=== PATIENT | male | born 1985 | race Caucasian/White ===

== ENCOUNTER → 2016-05-19 | Outpatient (REF) | payer OTHER | LOC: M LABDRAW1 17:02 | PROVIDERS: ATTEND Internal Medicine Rheumatology | DX: Z79.899 Other long term (current) drug therapy (principal) ==

== ENCOUNTER 2016-06-16 16:42 | Inpatient (IN) | payer OTHER ==
[~2016-06-16] VITALS: Ht 172.7 cm; Wt 64.2 kg
[2016-06-16] MEDS ORDERED: BUPR300T34 PO (16:56)
[2016-06-16] MEDS ORDERED: MELO15TA4 PO (16:56)
[2016-06-16] MEDS ORDERED: HUMI40KI2 (16:56)
[2016-06-16] MEDS ORDERED: ESCI10TA2 PO (16:56)
[2016-06-16 18:40] LABS: MEAN CORPUSCULAR HEMOGLOBIN 30.7 pg (27.0-33.0); MEAN CORPUSCULAR HGB CONC 34.8 g/dl (32.0-36.5); MEAN CORPUSCULAR VOLUME 88.1 fl (80.0-96.0); RED CELL DISTRIBUTION WIDTH 11.6 % (11.5-14.5)
[2016-06-16 19:05] LABS: ALBUMIN 4.6 GM/DL (3.2-5.2); ALBUMIN/GLOBULIN RATIO 1.53 (1.00-1.93); ALKALINE PHOSPHATASE 58 U/L (45-117); ALT/SGPT 21 U/L (12-78); ANION GAP 9 MEQ/L (8-16); AST/SGOT 13 U/L (15-37); BILIRUBIN,DIRECT 0.1 MG/DL (0.0-0.2); BILIRUBIN,TOTAL 0.5 MG/DL (0.2-1.0); BLOOD UREA NITROGEN 8 MG/DL (7-18); CALCIUM LEVEL 9.3 MG/DL (8.5-10.1); CARBON DIOXIDE LEVEL 27 MEQ/L (21-32); CHLORIDE LEVEL 104 MEQ/L (98-107); CREATININE FOR GFR 1.09 MG/DL (0.70-1.30); GLOMERULAR FILTRATION RATE > 60.0 (>60); GLUCOSE, FASTING 101 MG/DL (70-105); METHADONE URINE NEGATIVE (NEGATIVE); POTASSIUM SERUM 3.5 MEQ/L (3.5-5.1); SODIUM LEVEL 140 MEQ/L (136-145); TOTAL PROTEIN 7.6 GM/DL (6.4-8.2)
[2016-06-16 21:06] VITALS: BP 144/98
[2016-06-16] MEDS ORDERED: MAALOX 30 ML SUSP *UDC PO PRN (22:00)
[2016-06-16] MEDS ORDERED: ACETAMINOPHEN TAB 650MG DOSE (2X325MG) PO PRN (22:00)
[2016-06-16] MEDS ORDERED: traZODone 50 MG TAB PO PRN (22:00)
[2016-06-16] MEDS ORDERED: MOM 30ML SUSPENSION UDC PO PRN (22:00)
[2016-06-17 05:56] VITALS: BP 126/71
[2016-06-17] MEDS: ESCITALOPRAM OXALATE 10 MG TAB (LEXAPRO) PO SCH (09:24)
[2016-06-17] MEDS: buPROPion **XL** TABLET 150MG (WELLBUTRIN XL) PO SCH (09:24)
[2016-06-17] MEDS: MELOXICAM (MOBIC) 7.5 MG TAB PO SCH (09:24)
--- NOTE | 2016-06-17 09:42 | HPEPDOC ---
Medical History and Physical Date of Admission Jun 16, 2016 at 20:45 History and Physical PCP: Damaris Epps NP ATTENDING: Dr. Lj Salmon HPI: 31yoM admitted to [facility] for unspecified depressive disorder, being medically examined today. 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 He states he has chronic symptoms which include chronic back pain, chronic hip pain, chronic knee pain, chronic foot pain, nausea, intermittent diarrhea and constipation. He has been prescribed prednisone in the past which she took approximately 10 months however this was discontinued. He does take Mobic for his symptoms. He was recently prescribed Humira which was recently approved by his insurance and is scheduled to begin 06/21/16. He usually has follow-up with rheumatology every 2 months. He is unclear when his next appointment is. Denies any fevers, chills, [place], CP, SOB, cough, palpitations, changes in bowel or bladder habits. PMHx: Ankylosing spondylitis Depression Anxiety Chronic pain PSHX: Breast biopsy related to infected piercing Vasectomy LASIK SOCHX: Resides in: [facility] Marital Status: Kids: 3 Employment: [employer] work Tobacco use: 3-5 cigars per day ETOH: Denies Illicit Drugs: Marijuana daily IV Drug Use: Denies Tattoos done unprofessionally: 1 FAMHX: Mother: Alive, well Father: Alive, depression, anxiety Siblings: 2 brothers Alive, alcoholism Children: Alive, one daughter with history of depression, anxiety and history of CVA Unexpected deaths due to medical reasons: None. ROS: As noted in HPI, otherwise 11pt ROS of systems reviewed and remarkable for poor appetite. PE: GEN: 31yoM, appears stated age. Well-nourished, well developed. No acute distress. Alert and oriented x 3. Teary during exam, avoids eye contact. HEENT: Normocephalic, atraumatic. Pupils are equal, round, and reactive to light. Extraocular movements are intact. No nystagmus appreciated. Sclera are nonicteric. Conjunctiva without injection. Nose midline. Nasal turbinates without bogginess. EACs both patent BL. TMs both visualized and moore with good cone of light, no bulging or erythema. No facial asymmetry. Moist mucous membranes. Dentition fair. Pharynx pink and moist, no cobblestoning. Neck supple , trachea midline. No lymphadenopathy or thyromegaly appreciated. CHEST: Regular rate and rhythm, +S1, +S2 LUNGS: Clear to auscultation bilaterally. No wheezes, rales, or rhonchi. Breathing appears symmetric and easy. Patient is speaking in full sentences. No accessory muscle use. ABD: Round, soft, non-tender, non-distended. +Bowel sounds throughout. No rebound or guarding. No costovertebral angle tenderness. EXT: Pulses 2+ bilaterally dorsalis pedis and radial. No lower extremity edema appreciated. SKIN: [place], dry, warm. Capillary refill <2sec. No rashes. NEURO: Alert and oriented x 3. Cranial nerves III-XII are intact. No focal deficits appreciated. EKG: Pending. A&P: 31yoM admitted to [facility] for unspecified depressive disorder 1. Psych. Plan per Psychiatry. Obtain baseline EKG to assure the safety of psychiatric medications as they can prolong the QT interval. 2. Nicotine dependence. Patch available. 3. Ankylosing spondylitis. Management with rheumatology. Continue Mobic 15 mg daily. Patient is instructed to begin Humira 06/21/16 as per rheumatology. Keep outpatient follow-up with rheumatology. 4. Follow up with PCP on discharge. 5. Substance use. Per psychiatry. 6. Chronic back pain/joint pain. Patient does not feel he needs to see pain management at this time. Continue outpatient follow-up with rheumatology. Continue Mobic 15mg daily. 7. Staff member Moises present throughout exam. Vital Signs Vital Signs Date Time Temp Pulse Resp B/P Pulse Ox O2 Delivery O2 Flow Rate FiO2 06/17/16 05:56 98.6 69 16 126/71 Room Air 06/16/16 20:16 97 Laboratory Data Labs 24H Laboratory Tests 2 06/16/16 18:07: Acetaminophen Level < 2.0L, Aspartate Amino Transf (AST/SGOT) 13L, Alanine Aminotransferase (ALT/SGPT) 21, Alkaline Phosphatase 58, Total Bilirubin 0.5, Direct Bilirubin 0.1, Albumin 4.6, Albumin/Globulin Ratio 1.53, Anion Gap 9, Calcium Level 9.3, Ethyl Alcohol Level < 0.003, Glomerular Filtration Rate > 60.0, Salicylates Level < 1.7L, Thyroid Stimulating Hormone (TSH) 0.383, Total Protein 7.6, Urine Amphetamines Screen NEGATIVE, Urine Benzodiazepines Screen NEGATIVE, Urine Opiates Screen NEGATIVE, Urine Barbiturates Screen NEGATIVE, Urine Cannabinoids Screen POSITIVEH, Urine Cocaine Metabolite Screen NEGATIVE, Urine Methadone Screen NEGATIVE, Urine Phencyclidine Screen NEGATIVE CBC/BMP Laboratory Tests 06/16/16 18:07 Red Blood Count 4.95, Mean Corpuscular Volume 88.1, Mean Corpuscular Hemoglobin 30.7, Mean Corpuscular Hemoglobin Concent 34.8, Red Cell Distribution Width 11.6 Home Medications Scheduled Bupropion HCl (Bupropion HCl Xl) 300 Mg Tab 300 MG PO DAILY DEPRESSION TAKES AT LUNCHTIME Escitalopram Oxalate (Escitalopram Oxalate) 10 Mg Tab 10 MG PO DAILY DEPRESSION TAKES AT LUNCHTIME Meloxicam (Meloxicam) 15 Mg Tab 15 MG PO DAILY PAIN TAKES AT LUNCHTIME Allergies Coded Allergies: No Known Drug Allergy (Unverified Allergy, Unknown, 06/07/12) Tri Wilson Jun 17, 2016 09:42
--- NOTE | 2016-06-17 12:54 | HPEPDOC ---
[facility] History & Physical History and Physical DATE OF ADMISSION: Jun 16, 2016 at 20:45 LEGAL STATUS AT ADMISSION: Voluntary CHIEF COMPLAINT: HISTORY OF THE PRESENT ILLNESS: PSYCHIATRIC REVIEW OF SYSTEMS: Affective: . Anxiety: . Trauma: . Psychosis: . Personally: . PAST PSYCHIATRIC HISTORY: Prior Psychiatric Disorder: . Outpatient Treatment: . Suicidal/Self injurious: . Psychotropic Medication History: . ALLERGIES: Please see below. FAMILY PSYCHIATRIC HISTORY: . SOCIAL HISTORY: Early Relations/development: . Sibling order: . Paternal relationships: . Education: . Occupational: . Legal: . Martial: . Economic: . Supports: . Abuse/trauma: . SUBSTANCE ABUSE HISTORY: . PAST MEDICAL/SURGICAL HISTORY: 1. . 2. . VITAL SIGNS: Temperature , pulse , respiratory rate , blood pressure , pulse oximetry % on room air. MENTAL STATUS EXAMINATION: General appearance: Patient is a -year old male, who is . Speech: . Thought processes: . Thought content: . Abstract reasoning and computation: . Description of associations: . Description of abnormal or psychotic thoughts: . Judgment: . Insight: . Orientation: . Recent and remote memory: . Attention span and concentration: . Fund of knowledge: . Mood: "." Affect: . DIAGNOSES: 1. . 2. . 3. . ASSESSMENT: PROBLEM LIST: 1. . 2. . 3. . INITIAL TREATMENT PLAN: 1. Patient was admitted on a . 2. Complete history was obtained. 3. With patients permission, family will be contacted and database will be expanded. 4. Patients medication regimen will be reviewed and changed accordingly. 5. Patient will be provided with protected environment. 6. Patient will be treated with individual, group, and milieu therapies. 7. Patient will receive supportive psych-education. 8. Discharge planning will commence immediately. 9. Outpatient follow-up treatment will be strongly recommended. 10. The initial treatment plan will focus initially on: * Depression. * Risk for suicide. * Substance abuse. ESTIMATED LENGTH OF STAY: - DAYS. TIME SPENT COUNSELING AND COORDINATING INITIAL CARE: minutes. Laboratory Data 24H Labs Laboratory Tests 2 06/16/16 18:07: Acetaminophen Level < 2.0L, Aspartate Amino Transf (AST/SGOT) 13L, Alanine Aminotransferase (ALT/SGPT) 21, Alkaline Phosphatase 58, Total Bilirubin 0.5, Direct Bilirubin 0.1, Albumin 4.6, Albumin/Globulin Ratio 1.53, Anion Gap 9, Calcium Level 9.3, Ethyl Alcohol Level < 0.003, Glomerular Filtration Rate > 60.0, Salicylates Level < 1.7L, Thyroid Stimulating Hormone (TSH) 0.383, Total Protein 7.6, Urine Amphetamines Screen NEGATIVE, Urine Benzodiazepines Screen NEGATIVE, Urine Opiates Screen NEGATIVE, Urine Barbiturates Screen NEGATIVE, Urine Cannabinoids Screen POSITIVEH, Urine Cocaine Metabolite Screen NEGATIVE, Urine Methadone Screen NEGATIVE, Urine Phencyclidine Screen NEGATIVE CBC/BMP Laboratory Tests 06/16/16 18:07 Red Blood Count 4.95, Mean Corpuscular Volume 88.1, Mean Corpuscular Hemoglobin 30.7, Mean Corpuscular Hemoglobin Concent 34.8, Red Cell Distribution Width 11.6 Medications Scheduled Bupropion HCl (Bupropion HCl Xl) 300 Mg Tab 300 MG PO DAILY DEPRESSION (Reported ) TAKES AT LUNCHTIME Escitalopram Oxalate (Escitalopram Oxalate) 10 Mg Tab 10 MG PO DAILY DEPRESSION (Reported) TAKES AT LUNCHTIME Meloxicam (Meloxicam) 15 Mg Tab 15 MG PO DAILY PAIN (Reported) TAKES AT LUNCHTIME Allergies Coded Allergies: No Known Drug Allergy (Unverified Allergy, Unknown, 06/07/12) GAY TRINH MD Jun 17, 2016 12:54 Meloxicam (Meloxicam) 15 Mg Tab 15 MG PO DAILY PAIN (Reported) TAKES AT LUNCHTIME Allergies Coded Allergies: No Known Drug Allergy (Unverified Allergy, Unknown, 06/07/12) GAY TRINH MD Jun 17, 2016 12:54
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
[2016-06-17 18:00] VITALS: BP 136/88
[2016-06-18 06:00] VITALS: BP_SYST 120; BP_SYST 146; BP_DIAS 69; BP_DIAS 84
[2016-06-18] MEDS: ESCITALOPRAM OXALATE 10 MG TAB (LEXAPRO) PO SCH (08:30)
[2016-06-18] MEDS: buPROPion **XL** TABLET 150MG (WELLBUTRIN XL) PO SCH (08:31)
[2016-06-18] MEDS: MELOXICAM (MOBIC) 7.5 MG TAB PO SCH (08:31)
--- NOTE | 2016-06-18 13:43 | ECGEPIP ---
Stationary ECG Study [facility] Test Date: 2016-06-17 Pat Name: FARAZ VELASQUEZ Department: Room: [place] [address] Gender: M Orthopedic Podiatrist: : 1985 Requested By: Tri Wilson Order Number: [id number] Reading MD: Lj Worthington Measurements Intervals [place] Rate: 63 P: 71 OK: 128 QRS: 83 QRSD: 104 T: 71 QT: 373 QTc: 382 Interpretive Statements SINUS RHYTHM Early repolarization. No significant change compared with 06/26/2014. Electronically Signed On 06-18-2016 13:42:49 EDT by Lj Worthington
[2016-06-18 18:00] VITALS: BP 135/88
--- NOTE | 2016-06-18 21:30 | IPN ---
DATE: 06/18/2016 SUBJECTIVE: Mr. Leon spoke about his numerous concerns. He discusses ankylosing spondylitis. He discussed that he was going to be taking his first dose of Humira. He felt his antidepressant medication, Lexapro, was not working, but did not want any change of his medication until after he had his first Humira dose. He discussed his bisexuality. He discussed his shame and his 's unhappiness with him due to his complaining. He requests to be discharged because of wanting to be with his family. MENTAL STATUS EXAMINATION: Speech was normal. Thought process did not show any thought disorder. He had no loose associations. He had no abnormal or psychotic thoughts. He had no disturbances of judgment or insight. He was fully oriented recent and remote memory. No disturbance of attention or concentration. He had a full fund of knowledge. His mood was sad. His affect was flat. IMPRESSION: Major depressive illness.
[2016-06-19 07:00] VITALS: BP 113/67
[2016-06-19] MEDS: buPROPion **XL** TABLET 150MG (WELLBUTRIN XL) PO SCH (09:39)
[2016-06-19] MEDS: ESCITALOPRAM OXALATE 10 MG TAB (LEXAPRO) PO SCH (09:39)
[2016-06-19] MEDS: MELOXICAM (MOBIC) 7.5 MG TAB PO SCH (09:40)
[2016-06-19 18:00] VITALS: BP 132/74
[2016-06-20 06:20] VITALS: BP 152/98
[2016-06-20] MEDS: buPROPion **XL** TABLET 150MG (WELLBUTRIN XL) PO SCH (08:27)
[2016-06-20] MEDS: MELOXICAM (MOBIC) 7.5 MG TAB PO SCH (08:28)
[2016-06-20] MEDS ORDERED: ESCITALOPRAM OXALATE 10 MG TAB (LEXAPRO) PO SCH (09:00)
--- NOTE | 2016-06-20 09:46 | IPN ---
DATE OF VISIT: 06/19/2016 Mr. Mcguire discussed with me that many of his fears have been irrational. He focuses on his bisexuality which he thinks has been one of his bigger struggles but he also considers that his ankylosing spondylitis and physical issues have been his problem. As of yesterday he had stated he wanted to do "one thing at a time." He was not wanting to alter his antidepressant medications. I discussed with him today that either an increase in his Lexapro to a more effective dose of 20 mg or changing to Celexa where a wider range of dosages could be used and was reasonable and essentially would no effect his Humira treatment. He agreed and Lexapro was increased to 20 mg. No disturbances of speech. No disturbances of thought process. No loose associations. No abnormal or psychotic thoughts. Insight and judgment were improved. Orientation was full. Recent and remote memory intact. Attention and concentration were good. No disturbances of language. Full fund of knowledge. Mood is good. Affect is bright. DIAGNOSES: 1. Major depressive disorder. 2. Substance abuse. 3. Marijuana dependence. 4. Personality disorder.
--- NOTE | 2016-06-20 15:16 | IPNPDOC ---
[facility] Progress Note Progress Note DATE OF SERVICE: 06/20/16 HISTORY: This 31-year-old male with long-standing history of depression was admitted on Monday the after he came to the emergency room seeking for help. He stated that he has been controlled with Lexapro but after his told him that she wanted to leave him because she couldn't deal any more with his depression and being so dependent on her, he felt that he was out of control and couldn't handle the situation. He has suicidal ideation when he came to the emergency room voluntarily. He still has passive suicidal thoughts. Last Monday, the day he was admitted he wanted to be discharged but he was told he couldn't be discharged over the weekend and for what he said today, he has sometimes to think about his problems and gain some insight. He said his family was here and he told them everything he needed to, about his substance abuse and bisexuality. He felt relieved because they were supportive and understanding. He states he was able to speak with his and she reassured him that she is not leaving him, she just wants her space and time to think about their relationship. He states he understands she is worn out after all these years and that he is willing to give her the space she requires and the time and if after all of this she continues to think it's better for her to get the divorce, he will accept it because he only wants her to be happy. VITAL SIGNS: See below. NEW TEST RESULTS: . CURRENT MEDICATIONS: See below. MENTAL STATUS EXAMINATION: Patient is a 31-year old male, who is alert, cooperative, insightful, with good eye contact and good rapport Speech: Not tangential, not circumstantial Language skills are fair Thought processes including: Linear, coherent. Thought content: Negative for suicidal ideation, negative for homicidal ideation , negative for delusional thoughts, negative for auditory or visual hallucinations.. Abstract reasoning, and computation: Fair. Description of associations: There's no loosening of associations. Description of abnormal or psychotic thoughts: No psychotic thoughts are present. Judgment: Improving Insight: Improving Orientation: Oriented x 3 Recent and remote memory: Intact Attention span and concentration: Fair Language: Fluid, structured Fund of knowledge: Fair. Mood: " I feel much better" Affect: Brighter, less depressed DIAGNOSES: 1. Major Depressive disorder, moderate, without suicidal ideation 2. Substance Abuse (marijuana) 3. . ASSESSMENT: The patient has improved over the weekend he has become insightful about his marital problems, and his sexual orientation and his family dynamics. He denies having active suicidal thoughts or a suicidal plan and he denies having homicidal thoughts or plan. He is not actively psychotic and he will be discharged to his family tomorrow, June 21, if he continues to be stable throughout the rest of the day and night. His medication was increased, Lexapro to 20 mg by mouth twice a day. MANAGEMENT PLAN: The network planner has contacted his and his family and has made arrangements for him to have a place to live and continue his outpatient treatment. TIME SPENT: 25 minutes. Vital Signs Vital Signs Date Time Temp Pulse Resp B/P Pulse Ox O2 Delivery O2 Flow Rate FiO2 06/20/16 06:20 95.8 85 16 152/98 06/17/16 05:56 Room Air 06/16/16 20:16 97 Current Medications Current Medications Acetaminophen (Tylenol Tab) 650 mg Q6HP PRN PO HEADACHE or DISCOMFORT; Start at 22:00; Stop 07/16/16 at 21:59 Al Hydrox/Mg Hydrox/Simethicone (Mylanta) 30 ml Q4HP PRN PO HEARTBURN/ INDIGESTION; Start 06/16/16 at 22:00; Stop 07/16/16 at 21:59 Bupropion HCl (Wellbutrin Xl) 300 mg DAILY PO Last administered on 06/20/16 08 :27; Start 06/17/16 at 09:00; Stop 07/17/16 at 08:59 Escitalopram Oxalate (Lexapro) 10 mg DAILY PO Last administered on 06/19/16 09 :39; Start 06/17/16 at 09:00; Stop 06/19/16 at 10:13; Status DC Escitalopram Oxalate (Lexapro) 20 mg DAILY PO Last administered on 06/20/16 08 :28; Start 06/20/16 at 09:00; Stop 07/20/16 at 08:59 Home Med (Med Rec Complete!) ASDIRECTED XX ; Start 06/16/16 at 21:15; Stop at 21:15; Status DC Magnesium Hydroxide (Milk Of Magnesia) 30 ml DAILYPRN PRN PO CONSTIPATION; Start 06/16/16 at 22:00; Stop 07/16/16 at 21:59 Meloxicam (Mobic) 15 mg DAILY PO Last administered on 06/20/16t 08:28; Start at 09:00; Stop 07/17/16 at 08:59 Trazodone HCl (Desyrel) 50 mg QHSP PRN PO INSOMNIA; Start 06/16/16 at 22:00; Stop 07/16/16 at 21:59 Allergies Coded Allergies: No Known Drug Allergy (Unverified Allergy, Unknown, 06/07/12) GAY TRINH MD Jun 20, 2016 15:16
[2016-06-20 18:00] VITALS: BP 129/87
[2016-06-20] MEDS: ESCITALOPRAM OXALATE 10 MG TAB (LEXAPRO) PO SCH (21:00)
[2016-06-21 06:36] VITALS: BP 127/68
[2016-06-21] MEDS: MELOXICAM (MOBIC) 7.5 MG TAB PO SCH (09:11)
[2016-06-21] MEDS: ESCITALOPRAM OXALATE 10 MG TAB (LEXAPRO) PO SCH (09:11)
[2016-06-21] MEDS: buPROPion **XL** TABLET 150MG (WELLBUTRIN XL) PO SCH (09:11)
[2016-06-21] MEDS ORDERED: BUPR150T3 PO (11:48)
[2016-06-21] MEDS ORDERED: ESCI10TA2 PO (11:48)
[2016-06-21] MEDS ORDERED: MELO7.5T6 PO (11:51)
[2016-06-21] MEDS ORDERED: TRAZO50TA PO (11:52)
[2016-06-21] MEDS ORDERED: ESCI20TA PO (13:45)
--- NOTE | 2016-06-21 14:01 | DS.PDOC ---
[facility] Discharge Summary Discharge Summary DATE OF ADMISSION: Jun 16, 2016 at 20:45 DATE OF DISCHARGE: June 21, 2016 DISCHARGE DIAGNOSES: 1. Major depressive disorder without suicidal ideation 2. Substance abuse (marijuana). REASON FOR ADMISSION: Patient decided to come to the emergency room on June 16 because he was feeling very depressed and he has suicidal thoughts due to his telling him that she needed to separate from him. She felt she needed to stay away from him because of his chronic marijuana abuse and because he is very dependent on her. He has suicidal thoughts and he repeatedly said that he couldn't handle the situation and for that reason he decided help. On Monday afternoon he wanted to be discharged, he was very irritable, angry, frustrated and depressed although he claimed that he didn't have suicidal thoughts he had passive suicidal ideation, making statements like "I don't know what I'm going to do without her, I don't want to live without her" CONSULTANTS INVOLVED: None TREATMENT AND PROGRESS ON THE UNIT : He has been treated with Wellbutrin 300 mg by mouth daily at bedtime, he was already being treated with this medication from an outside provider and he was treated with Lexapro 20 mg by mouth daily but it was increased to 40 mg during the weekend. During the weekend he still wanted to be discharged but on June 20 he had gained insight, his judgment had improved, he had a very cooperative attitude and he understood that he needs to continue working on his psychiatric problem. He understands his was worn out and he was willing to give hershe needs at that time she needs in order to rethink her decision of from him. He stated that he is no longer suicidal, he has no suicidal thoughts or plans, he is not willing to hurt anybody and has no homicidal ideations. He denied delusional thoughts or hallucinations HOSPITAL COURSE: He was able to improve, has been attending groups, has received psychotherapy and has been on medications. DISCHARGE ASSESSMENT: Upon discharge, he was seen in a brighter mood and affect , less depressed, not angry, not belligerent, not frustrated. His thought process is goal oriented, has plans for the future and is motivated to improve his mental health. MENTAL STATUS EXAMINATION ON DISCHARGE: Patient is a 31-year old male, who is alert, cooperative, pleasant with good eye contact, reports, no hygiene Speech is normal in speed and volume and tone. No circumstantiality and no tangentiality. Language skills are fair. Thought processes including: Linear, coherent and logical. Thought content: Negative for suicidal ideations, negative for homicidal ideations, negative for delusional thoughts, negative for auditory and visual hallucinations, negative for thought insertion, negative for obsessions. Abstract reasoning, and computation: Fair. Description of associations: There is no loosening of associations. Description of abnormal or psychotic thoughts: Not present. Judgment: Improved. Insight: Improved. Orientation to oriented 3. Recent and remote memory: Intact. Attention span and concentration: Fair. Language: Fluid, structure, coherent. Fund of knowledge: Fair. Mood: "I feel much better". Affect: Brighter, reactive, appropriate. MEDICATIONS ON DISCHARGE: -Lexapro 20 mg by mouth daily for depression for, Wellbutrin 150 mg by mouth daily for 3 days and after those 3 days he will be on 75 mg by mouth daily and then discontinue. The reason for this change in medication dosage and discontinuation of Wellbutrin is because his stated that she feels that Wellbutrin contributes to his anxiety and he doesn't calm him down. He was discharged on meloxicam 50 mg by mouth daily and trazodone 50 mg by mouth daily at bedtime when necessary for insomnia. PLAN/FOLLOWUP ARRANGEMENTS: He will continue to receive treatment with his outside provider, continue psychotherapy and continue with his medications The amount of time spent in the coordination of care for this patient was approximately 30 minutes. Vital Signs/I&Os Vital Signs Date Time Temp Pulse Resp B/P Pulse Ox O2 Delivery O2 Flow Rate FiO2 06/21/16 06:36 98.3 66 16 127/68 06/17/16 05:56 Room Air 06/16/16 20:16 97 Medications Scheduled Bupropion Hcl (Bupropion HCl Xl) 150 Mg Tab #14 300 MG PO DAILY MOOD Escitalopram Oxalate (Escitalopram Oxalate) 20 Mg Tab 20 MG PO DAILY MOOD ( Reported) Meloxicam (Meloxicam) 7.5 Mg Tab #14 15 MG PO DAILY Ankylosing spondilitis Scheduled PRN Trazodone HCl (Trazodone HCl) 50 Mg Tab #7 50 MG PO QHSP PRN PRN INSOMNIA Allergies Coded Allergies: No Known Drug Allergy (Unverified Allergy, Unknown, 06/07/12) GAY TRINH MD Jun 21, 2016 14:01
== END 2016-06-21 14:00 | disposition home or self-care (01) | DRG 754 ==
LOC: M ED 17:32 → M PSY 20:45
PROVIDERS: ADMIT Psychiatry & Neurology Psychiatry; ATTEND Psychiatry & Neurology Psychiatry
DX: F32.9 Major depressive disorder, single episode, unspecified (principal); F12.10 Cannabis abuse, uncomplicated; Z79.899 Other long term (current) drug therapy; M54.5 Low back pain; F17.290 Nicotine dependence, other tobacco product, uncomplicated; M45.9 Ankylosing spondylitis of unspecified sites in spine

== ENCOUNTER 2016-07-22 16:47 | Emergency (ER) | payer OTHER ==
[~2016-07-22] VITALS: Ht 172.7 cm; Wt 61.2 kg
[~2016-07-22 16:47] MED LIST: BUPR150T3 PO; BUPR300T34 PO; ESCI10TA2 PO; ESCI20TA PO; HUMI40KI2; MELO15TA4 PO; MELO7.5T6 PO; TRAZO50TA PO
[2016-07-22 16:48] VITALS: BP 151/84
[2016-07-22] MEDS ORDERED: HUMI40KI2 SQ (16:54)
[2016-07-22] MEDS ORDERED: NS 1,000 ML IV ONE (17:15)
[2016-07-22] MEDS ORDERED: KETOROLAC 30 MG/ML VIAL (J1885) IV ONE (17:15)
[2016-07-22] MEDS ORDERED: ONDANSETRON 4MG/2ML VIAL (J2405) IV ONE (17:15)
[2016-07-22 17:46] LABS: BASO % 0.5 % (0.0-1.0); EOS # 0.1 K/mm3 (0.0-0.50); EOS % 0.8 % (0.0-3.0); LARGE UNSTAINED CELL # 0.2 K/mm3 (0.0-0.4); LARGE UNSTAINED CELL % 2.1 % (0.0-4.0); LYMPH # 2.3 K/mm3 (1.5-4.5); LYMPH % 31.7 % (24.0-44.0); MEAN CORPUSCULAR HEMOGLOBIN 31.5 pg (27.0-33.0); MEAN CORPUSCULAR HGB CONC 34.2 g/dl (32.0-36.5); MEAN CORPUSCULAR VOLUME 92.2 fl (80.0-96.0); MONO # 0.6 K/mm3 (0.0-0.8); MONO % 7.6 % (0.0-5.0); NEUTROPHILS # 4.1 K/mm3 (1.8-7.7); NEUTROPHILS % 57.3 % (36.0-66.0); PLATELET COUNT, AUTOMATED 304 k/mm3 (150-450); RED CELL DISTRIBUTION WIDTH 12.1 % (11.5-14.5); WHITE BLOOD COUNT 7.2 K/mm3 (4.0-10.0)
[2016-07-22 17:55] LABS: ALBUMIN 4.6 GM/DL (3.2-5.2); ALBUMIN/GLOBULIN RATIO 1.48 (1.00-1.93); ALKALINE PHOSPHATASE 50 U/L (45-117); ALT/SGPT 20 U/L (12-78); AMYLASE 76 U/L (25-115); ANION GAP 5 MEQ/L (8-16); AST/SGOT 15 U/L (15-37); BILIRUBIN,DIRECT 0.2 MG/DL (0.0-0.2); BILIRUBIN,TOTAL 0.7 MG/DL (0.2-1.0); BLOOD UREA NITROGEN 9 MG/DL (7-18); CALCIUM LEVEL 8.4 MG/DL (8.5-10.1); CARBON DIOXIDE LEVEL 30 MEQ/L (21-32); CHLORIDE LEVEL 100 MEQ/L (98-107); GLOMERULAR FILTRATION RATE > 60.0 (>60); GLUCOSE, FASTING 97 MG/DL (70-105); POTASSIUM SERUM 3.6 MEQ/L (3.5-5.1); SODIUM LEVEL 135 MEQ/L (136-145); TOTAL PROTEIN 7.7 GM/DL (6.4-8.2)
[2016-07-22] MEDS ORDERED: BENT20TA PO (18:06)
[2016-07-22] MEDS ORDERED: ZOFR4TAB3 PO (18:06)
== END 2016-07-22 18:12 | disposition home or self-care (01) ==
LOC: M ED 18:09
DX: R11.2 Nausea with vomiting, unspecified (principal); R10.13 Epigastric pain; G89.29 Other chronic pain; M45.9 Ankylosing spondylitis of unspecified sites in spine; F17.200 Nicotine dependence, unspecified, uncomplicated; Z79.899 Other long term (current) drug therapy
CPT/HCPCS: 80048; 80076; 81001; 82150; 83690; 85025; 96374; 96375; 99283; J1885; J2405

== ENCOUNTER → 2017-07-06 | Outpatient (REF) | payer OTHER ==
[2017-07-06 18:44] LABS: AMYLASE 87 U/L (25-115)
[2017-07-06 18:44] LABS: C REACTIVE PROTEIN QUANTITATIV < 0.30 MG/DL (0.00-0.30); LIPASE 173 U/L (73-393)
== END ==
LOC: M LAB REF 16:41
DX: R10.9 Unspecified abdominal pain (principal)

== ENCOUNTER → 2018-05-04 | Outpatient (REF) | payer OTHER ==
[~2018-05-04] MED LIST changes: +BENT20TA PO; +HUMI40KI2 SQ; +MELO15TA28 PO; -MELO15TA4 PO; -MELO7.5T6 PO; +MELO7.5T7 PO; +ZOFR4TAB14 PO
== END ==
LOC: M LAB REF 17:09
PROVIDERS: ATTEND Family Medicine
DX: M45.9 Ankylosing spondylitis of unspecified sites in spine (principal); R07.9 Chest pain, unspecified

== ENCOUNTER → 2018-06-04 | Outpatient (CLI) | payer OTHER ==
--- NOTE | 2018-06-04 17:10 | REP ---
Clinical: Clinical: Tuberculosis . Comparison: 09/05/2014 . Technique: PA and lateral. Findings: The mediastinum and cardiac silhouette are normal. The lung lee are clear and without acute consolidation, effusion, or pneumothorax. The skeletal structures are intact and normal. Impression: 1. No acute cardiopulmonary process. Electronically Signed by Rik Roman MD 06/04/2018 05:02 P
== END ==
LOC: M WUC 16:48
PROVIDERS: ATTEND Internal Medicine Rheumatology
DX: Z87.09 Personal history of other diseases of the respiratory system (principal)

== ENCOUNTER → 2018-07-16 | Outpatient (REF) | payer OTHER ==
[2018-07-16 13:26] LABS: HEMATOCRIT 43.5 % (42.0-52.0); HEMOGLOBIN 14.7 g/dl (13.5-17.5); MEAN CORPUSCULAR HEMOGLOBIN 31.4 pg (27.0-33.0); MEAN CORPUSCULAR HGB CONC 33.8 g/dl (32.0-36.5); MEAN CORPUSCULAR VOLUME 92.9 fl (80.0-96.0); PLATELET COUNT, AUTOMATED 257 10^3/uL (150-450); RED BLOOD COUNT 4.68 10^6/uL (4.30-6.10)
[2018-07-16 14:07] LABS: ALBUMIN 4.1 GM/DL (3.2-5.2); ALT/SGPT 20 U/L (12-78); BILIRUBIN,TOTAL 0.4 MG/DL (0.2-1.0); BLOOD UREA NITROGEN 10 MG/DL (7-18); CALCIUM LEVEL 9.3 MG/DL (8.5-10.1); CARBON DIOXIDE LEVEL 28 MEQ/L (21-32); CHLORIDE LEVEL 106 MEQ/L (98-107); CREATININE FOR GFR 0.87 MG/DL (0.70-1.30); GLOMERULAR FILTRATION RATE > 60.0 (>60); GLUCOSE, FASTING 81 MG/DL (70-100); POTASSIUM SERUM 4.1 MEQ/L (3.5-5.1); SODIUM LEVEL 140 MEQ/L (136-145); TOTAL PROTEIN 7.2 GM/DL (6.4-8.2)
[2018-07-16 14:40] LABS: HIV 1&2 SCREEN CENTAUR NEGATIVE (NEGATIVE)
== END ==
LOC: M SFHCPLAZ 11:47
PROVIDERS: ATTEND Internal Medicine Infectious Disease
DX: R76.11 Nonspecific reaction to tuberculin skin test without active tuberculosis (principal)

== ENCOUNTER → 2018-08-16 | Outpatient (REF) | payer OTHER ==
[~2018-08-16] MED LIST changes: +TRAZ1TAB10 PO; -TRAZO50TA PO
[2018-08-16 14:05] LABS: BILIRUBIN,DIRECT 0.3 MG/DL (0.0-0.2); BILIRUBIN,TOTAL 0.7 MG/DL (0.2-1.0); TOTAL PROTEIN 7.6 GM/DL (6.4-8.2)
== END ==
LOC: M SFHCPLAZ 11:17
PROVIDERS: ATTEND Internal Medicine Infectious Disease
DX: R76.11 Nonspecific reaction to tuberculin skin test without active tuberculosis (principal)

== ENCOUNTER → 2019-01-14 | Outpatient (REF) | payer OTHER | LOC: M LAB REF 18:24 | PROVIDERS: ATTEND Registered Nurse | DX: Z11.1 Encounter for screening for respiratory tuberculosis (principal); R10.11 Right upper quadrant pain ==

== ENCOUNTER → 2019-03-01 | Outpatient (REF) | LOC: M LAB 14:55 | DX: Z02.89 Encounter for other administrative examinations (principal) ==